=== PATIENT | male | born 1990 | race Caucasian/White ===

== ENCOUNTER 2017-12-02 17:06 | Emergency (ER) | payer BC ==
[~2017-12-02] VITALS: Ht 165.1 cm; Wt 70.8 kg
[2017-12-02] MEDS ORDERED: NAPROSYN500 MG PO (18:00)
--- NOTE | 2017-12-03 11:38 | EKG ---
[facility] [address] [facility] [place] [address] Signed Normal sinus rhythm Normal ECG No previous ECGs available Confirmed by PADILLA CHRIS MD ([id number]) on 12/03/2017 11:38:48 AM Electronically Signed By: PADILLA CHRIS MD 12/03/17 1138 PATIENT NAME: OZZYNABIL AILEEN Electrocardiogram DATE OF : [birth year] PHYSICIAN: PADILLA CHRIS MD REPORT #: [id number] REPORT IS CONFIDENTIAL AND NOT TO BE RELEASED WITHOUT AUTHORIZATION
== END 2017-12-02 18:40 | disposition home or self-care (01) ==
LOC: ED 17:06
DX: R07.81 Pleurodynia (principal); F17.200 Nicotine dependence, unspecified, uncomplicated
CPT/HCPCS: 71046; 93005; 93010; 96374; 99285; J1885

== ENCOUNTER 2019-06-29 13:29 | Emergency (ER) | payer OTHER ==
[~2019-06-29] VITALS: Ht 165.1 cm; Wt 70.8 kg
[~2019-06-29 13:29] MED LIST: NAPROSYN500 MG PO
[2019-06-29] MEDS ORDERED: CLEOCIN HCL300 MG PO (13:57)
== END 2019-06-29 13:52 | disposition home or self-care (01) ==
LOC: ED 13:29
DX: K08.89 Other specified disorders of teeth and supporting structures (principal)

== ENCOUNTER 2019-08-15 17:50 | Emergency (ER) | payer OTHER ==
[~2019-08-15] VITALS: Ht 165.1 cm; Wt 70.8 kg
[~2019-08-15 17:50] MED LIST changes: +CLEOCIN HCL300 MG PO
[2019-08-15] MEDS ORDERED: ADVIL200 MG PO (18:05)
== END 2019-08-15 19:24 | disposition home or self-care (01) ==
LOC: ED 17:50
DX: A64 Unspecified sexually transmitted disease (principal); F17.200 Nicotine dependence, unspecified, uncomplicated; J45.909 Unspecified asthma, uncomplicated
CPT/HCPCS: 96372; 99283; J0696

== ENCOUNTER 2022-09-19 05:15 | Emergency (ER) | payer OTHER ==
[~2022-09-19] VITALS: Ht 165.1 cm; Wt 66.0 kg
[~2022-09-19 05:15] MED LIST changes: +ADVIL200 MG PO
[2022-09-19] MEDS ORDERED: FLONASE ALLERG9.9 ML NAS (05:29)
[2022-09-19 06:05] VITALS: BP 132/85
== END 2022-09-19 06:05 | disposition home or self-care (01) ==
LOC: ED 05:15
DX: M79.671 Pain in right foot (principal); M79.672 Pain in left foot; J45.909 Unspecified asthma, uncomplicated; F17.200 Nicotine dependence, unspecified, uncomplicated
CPT/HCPCS: 99283

== ENCOUNTER 2023-04-21 03:06 | Emergency (ER) | payer OTHER ==
[~2023-04-21] VITALS: Ht 165.1 cm; Wt 65.8 kg
[~2023-04-21 03:06] MED LIST changes: +FLONASE ALLERG9.9 ML NAS
[2023-04-21 03:28] LABS: BASOPHILS 0.8 % (0-2); EOSINOPHILS 3.6 % (0-6); HEMATOCRIT 43.6 % (35.0-50.0); HEMOGLOBIN 14.9 g/dL (12.0-18.0); LYMPHOCYTES 38.6 % (24-44); MCH 30.7 (27-36); MCHC 34.2 g/dl (30-36); MCV 89.7 fl (81-99); MONOCYTES 9.6 % (0-12); NEUTROPHILS 47.4 % (39-80); PLATELET COUNT 189 K/uL (140-440); RBC 4.86 M/ul (4.3-5.7); RDW 12.7 (10.5-15.0)
[2023-04-21 03:40] LABS: ALBUMIN 4.6 g/dL (3.4-5.0); ALBUMIN/GLOBULIN RATIO 1.64 (1.1-2.4); ANION GAP 9.7 (7-21); BILIRUBIN, TOTAL 0.4 ng/dL (0.2-1.0); BUN/CREATININE RATIO 18.88 (6.0-28.6); CALCIUM 8.6 mg/dL (8.5-10.1); CREATININE, SERUM 0.9 mg/dL (0.70-1.30); POTASSIUM 3.7 mmol/L (3.5-5.1); PROTEIN, TOTAL 7.4 g/dL (6.4-8.2)
[2023-04-21 04:08] VITALS: BP 104/77
--- NOTE | 2023-04-21 06:01 | EKG ---
[facility] [address] [facility] [place] [address] Signed Normal sinus rhythm peaked T waves in lateral leads V3-6 When compared with ECG of 02-DEC-2017 17:14, peaked t waves also present but predominantly in V2-4 Confirmed by BECKY SHEN MD ([id number]) on 04/21/2023 6:01:02 AM Electronically Signed By: BECKY SHEN 04/21/23 0601 PATIENT NAME: NABIL PRECIADO Electrocardiogram DATE OF : [birth year] PHYSICIAN: BECKY SHEN REPORT #: [id number] REPORT IS CONFIDENTIAL AND NOT TO BE RELEASED WITHOUT AUTHORIZATION
== END 2023-04-21 04:09 | disposition home or self-care (01) ==
LOC: ED 03:06
PROVIDERS: Internal Medicine
DX: M94.0 Chondrocostal junction syndrome [Tietze] (principal); F17.200 Nicotine dependence, unspecified, uncomplicated
CPT/HCPCS: 36415; 71045; 80053; 84484; 85025; 93005; 93010; 99285-25; A9270

== ENCOUNTER 2023-05-14 17:14 | Emergency (ER) | payer OTHER ==
[~2023-05-14] VITALS: Ht 165.1 cm; Wt 75.6 kg
--- OUTSIDE RECORDS SUMMARY | 2023-05-14 17:22 | XMS ---
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 [place] VISIT COUNT (12 MO.) 3 [facility] TOTAL 3 NOTE: Visits indicate total known visits. ED/C VISIT TRACKING (12 MO.) 05/14/2023 17:15 [facility] TYPE: Emergency COMPLAINT: - CONSTIPATION 04/21/2023 03:06 [facility] TYPE: Emergency COMPLAINT: - CHEST PAIN DIAGNOSES: - Chondrocostal junction syndrome [[place]ze] - Nicotine dependence, unspecified, uncomplicated - Other chest pain 09/19/2022 05:17 [facility] TYPE: Emergency COMPLAINT: - BILATE FOOT PAIN DIAGNOSES: - Nicotine dependence, unspecified, uncomplicated - Pain in left foot - Pain in right foot - Unspecified asthma, uncomplicated INPATIENT VISIT TRACKING (12 MO.) No inpatient visits to display in this time frame [email or web address]
[2023-05-14] MEDS ORDERED: ANUSOL-HC30 GM PR (23:25)
[2023-05-14 23:43] VITALS: BP 131/91
== END 2023-05-14 23:43 | disposition home or self-care (01) ==
LOC: ED 17:14
DX: K64.8 Other hemorrhoids (principal); J45.909 Unspecified asthma, uncomplicated; F17.200 Nicotine dependence, unspecified, uncomplicated
CPT/HCPCS: 99283

== ENCOUNTER 2024-04-11 22:18 | Emergency (ER) | payer OTHER ==
[~2024-04-11] VITALS: Ht 167.6 cm; Wt 79.5 kg
[~2024-04-11 22:18] MED LIST changes: +ANUSOL-HC30 GM PR
[2024-04-11 22:38] LABS: EOSINOPHILS 2.8 % (0-6); HEMATOCRIT 41.9 % (35.0-50.0); MCH 30.8 (27-36); MCHC 33.3 g/dl (30-36); MCV 92.3 fl (81-99); NEUTROPHILS 43.2 % (39-80); PLATELET COUNT 284 K/uL (140-440); RBC 4.54 M/ul (4.3-5.7); RDW 12.8 (10.5-15.0)
[2024-04-11 23:00] LABS: ACETAMINOPHEN 0 ug/mL (10-30); ALBUMIN 3.7 g/dL (3.4-5.0); ALBUMIN/GLOBULIN RATIO 1.06 (1.1-2.4); ALCOHOL, MEDICAL <3 ng/dL (<3); ALKALINE PHOSPHATASE 124 U/L (46-116); ALT (SGPT) 33 U/L (14-59); ANION GAP 7.5 (7-21); AST (SGOT) 33 U/L (15-37); BILIRUBIN, TOTAL 0.2 ng/dL (0.2-1.0); BUN/CREATININE RATIO 21.83 (6.0-28.6); CALCIUM 9.4 mg/dL (8.5-10.1); CARBON DIOXIDE 37 mmol/L (21-32); CHLORIDE 98 mmol/L (98-107); CREATININE, SERUM 0.87 mg/dL (0.70-1.30); GLOMERULAR FILTRATION RATE,EST 118 mL/min (>60); POTASSIUM 3.5 mmol/L (3.5-5.1); PROTEIN, TOTAL 7.2 g/dL (6.4-8.2); SALICYLATE 1.7 mg/dL (2.8-20.0); TSH, 3RD GENERATION 5.731 uIU/mL (0.358-3.740); UREA NITROGEN 19 mg/dL (7-18)
[2024-04-11] MEDS ORDERED: LACTATED RINGER'S 1,000 ML IV ONE (23:45)
[2024-04-12 01:22] LABS: BILIRUBIN, URINE NEGATIVE (negative); BLOOD/HGB, URINE NEGATIVE (Negative); KETONE, URINE NEGATIVE (Negative); LEUK ESTERASE, URINE NEGATIVE (negative); NITRITE, URINE NEGATIVE (negative); PH, URINE 6.5 (5-7)
[2024-04-12 01:36] LABS: AMPHETAMINES, URINE POSITIVE (NEGATIVE); BARBITURATES, URINE NEGATIVE (NEGATIVE); BENZODIAZEPINE, URINE NEGATIVE (NEGATIVE); BUPRENORPHINE, URINE NEGATIVE (NEGATIVE); CANNABINOID, URINE POSITIVE (NEGATIVE); COCAINE, URINE NEGATIVE (NEGATIVE); ECSTASY, URINE NEGATIVE (NEGATIVE); FENTANYL, URINE POSITIVE (NEGATIVE); METHADONE, URINE NEGATIVE (NEGATIVE); OPIATES, URINE NEGATIVE (NEGATIVE); OXYCODONE, URINE NEGATIVE (NEGATIVE); PHENCYCLIDINE, URINE NEGATIVE (NEGATIVE)
[2024-04-12] MEDS ORDERED: NALOXONE 4 MG NASAL SPRAY #2 HOME.PACK NAS ONE (02:00)
[2024-04-12 02:45] VITALS: BP 129/73
--- NOTE | 2024-04-12 20:52 | EKG ---
[facility] [address] [facility] [place] [address] Signed Normal sinus rhythm Normal ECG When compared with ECG of 21-APR-2023 03:17, No significant change was found Confirmed by Yasemin Benitez MD ([id number]) on 04/12/2024 8:51:54 PM Electronically Signed By: YASEMIN BENITEZ DO 04/12/242051 PATIENT NAME: NABIL PRECIADO Electrocardiogram DATE OF : [birth year] PHYSICIAN: YASEMIN BENITEZ DO REPORT #: [id number] REPORT IS CONFIDENTIAL AND NOT TO BE RELEASED WITHOUT AUTHORIZATION
== END 2024-04-12 02:45 | disposition home or self-care (01) ==
LOC: ED 22:18
PROVIDERS: Internal Medicine
DX: T40.411A Poisoning by fentanyl or fentanyl analogs, accidental (unintentional), initial encounter (principal); R40.2A Nontraumatic coma due to underlying condition; F17.200 Nicotine dependence, unspecified, uncomplicated
CPT/HCPCS: 36415; 71045; 80053; 80307; 81003; 84443; 84484; 85025; 93005; 93010; 96360; 99284-25; G0480; J3490; J7121